=== PATIENT | male | born 1970 | race Caucasian/White ===

== ENCOUNTER 2017-06-21 15:21 | Emergency (ER) | payer OTHER ==
[2017-06-21] MEDS ORDERED: METOPROLOL TART50 M1 PO (15:25)
[2017-06-21] MEDS ORDERED: VENTOLIN 02.5 MG/3 M INH (15:25)
[2017-06-21] MEDS ORDERED: TAMIFLU 75MG CA75 MG PO (16:35)
== END 2017-06-21 16:08 | disposition home or self-care (01) ==
LOC: ED 15:21
DX: J11.1 Influenza due to unidentified influenza virus with other respiratory manifestations (principal); Z88.2 Allergy status to sulfonamides; Z79.899 Other long term (current) drug therapy